=== PATIENT | female | born 1955 | race Caucasian/White ===

== ENCOUNTER → 2018-01-04 | Outpatient (CLI) | payer OTHER, MEDICARE | LOC: M WHC 09:32 | DX: Z12.31 Encounter for screening mammogram for malignant neoplasm of breast (principal); Z13.820 Encounter for screening for osteoporosis; Z78.0 Asymptomatic menopausal state | CPT/HCPCS: 77067 ==

== ENCOUNTER → 2019-01-07 | Outpatient (CLI) | payer OTHER, MEDICARE ==
--- NOTE | 2019-01-07 10:32 | REPMRS ---
Patient History The patient states she had a clinical breast exam in 12/2018. Family history of colorectal cancer at age 54 in father. Benign lumpectomy of the left breast, 1991. Benign excisional biopsy of the left breast, 1986. Digital Woman Screen Mammo: January 07, 2019 - Exam #: [id number] Bilateral CC and MLO view(s) were taken. Technologist: Rea Matthews, Technologist Prior study comparison: January 04, 2018, bilateral digital woman screen mammo performed at [facility]. April 29, 2014, digital woman screen mammo performed at [facility]. April 08, 2013, digital woman screen mammo performed at [facility]. FINDINGS: There are scattered fibroglandular densities. There has been no change in the appearance of the mammogram from the prior studies. There is a mild amount of scattered fibroglandular density which is fairly symmetric. There is no interval development of dominant mass, architectural distortion, or clustered microcalcification suggestive of malignancy. 3-D tomosynthesis shows no additional findings. Assessment: BI-RADS/ACR category 1 mammogram. Negative Mammogram. Recommendation Routine screening mammogram of both breasts in 1 year (for women over age 40). This patient's Lifetime Breast Cancer RIsk is estimated at 5.6 %. This mammogram was interpreted with the aid of an FDA-approved computer-aided dectection system. Electronically Signed By: José Miguel Bravo MD 01/07/19 1854
== END ==
LOC: M WHC 09:04
PROVIDERS: ATTEND Nurse Practitioner Women's Health
DX: Z12.31 Encounter for screening mammogram for malignant neoplasm of breast (principal); Z80.0 Family history of malignant neoplasm of digestive organs; N63.20 Unspecified lump in the left breast, unspecified quadrant

== ENCOUNTER → 2020-01-09 | Outpatient (CLI) | payer OTHER, MEDICARE ==
--- NOTE | 2020-01-09 10:06 | REPMRS ---
Patient History The patient states she had a clinical breast exam in December 2019. Family history of colorectal cancer at age 54 in father. Benign lumpectomy of the left breast, 1991. Benign excisional biopsy of the left breast, 1986. Digital Woman Screen Mammo: January 09, 2020 - Exam #: [id number] Bilateral CC and MLO view(s) were taken. Technologist: Demetria Martin, Technologist Prior study comparison: January 07, 2019, bilateral digital woman screen mammo performed at [facility]. January 04, 2018, bilateral digital woman screen mammo performed at [facility]. April 29, 2014, digital woman screen mammo performed at [facility]. FINDINGS: There are scattered fibroglandular densities. The Volpara volumetric breast density category is:B. There has been no change in the appearance of the mammogram from the prior studies. There is a mild amount of scattered fibroglandular density which is fairly symmetric. There is no interval development of dominant mass, architectural distortion, or grouped microcalcification suggestive of malignancy. 3-D tomosynthesis shows no additional findings. Assessment: BI-RADS/ACR category 1 mammogram. Negative Mammogram. Recommendation Routine screening mammogram of both breasts in 1 year (for women over age 40). This patient's Lifetime Breast Cancer Risk is estimated at 5.4 %. This mammogram was interpreted with the aid of an FDA-approved computer-aided dectection system. Electronically Signed By: José Miguel Bravo MD 01/09/20 [id number]
== END ==
LOC: M WHC 09:30
PROVIDERS: ATTEND Nurse Practitioner Women's Health
DX: Z12.31 Encounter for screening mammogram for malignant neoplasm of breast (principal)

== ENCOUNTER → 2021-01-13 | Outpatient (CLI) | payer OTHER, MEDICARE ==
--- NOTE | 2021-01-13 10:44 | REPMRS ---
Patient History Family history of colorectal cancer at age 54 in father. Benign lumpectomy of the left breast, 1991. Benign excisional biopsy of the left breast, 1986. Patient states no breast complaints today. Patient has signed MRS History Sheet. Digital Woman Screen Mammo: January 13, 2021 - Exam #: [id number] Bilateral CC and MLO view(s) were taken. Technologist: RT Jennifer Prior study comparison: January 09, 2020, bilateral digital woman screen mammo performed at [facility]. January 07, 2019, bilateral digital woman screen mammo performed at [facility]. January 04, 2018, bilateral digital woman screen mammo performed at [facility]. FINDINGS: There are scattered fibroglandular densities. The Volpara volumetric breast density category is:B. There has been no change in the appearance of the mammogram from the prior studies. There is a mild amount of scattered fibroglandular density which is fairly symmetric. There is no interval development of dominant mass, architectural distortion, or grouped microcalcification suggestive of malignancy. 3-D tomosynthesis shows no additional findings. Assessment: BI-RADS/ACR category 1 mammogram. Negative Mammogram. Recommendation Routine screening mammogram of both breasts in 1 year (for women over age 40). This patient's [facility] Lifetime Breast Cancer Risk is estimated at 5.1 %. This mammogram was interpreted with the aid of an FDA-approved computer-aided dectection system. Electronically Signed By: José Miguel Bravo MD 01/13/21 6025
== END ==
LOC: M WHC 08:07
PROVIDERS: ATTEND Nurse Practitioner Women's Health
DX: Z12.31 Encounter for screening mammogram for malignant neoplasm of breast (principal); Z80.0 Family history of malignant neoplasm of digestive organs

== ENCOUNTER → 2024-02-11 | Outpatient (CLI) | payer OTHER, MEDICARE | LOC: M WHC 10:22 | PROVIDERS: ATTEND Nurse Practitioner Family | DX: Z12.31 Encounter for screening mammogram for malignant neoplasm of breast (principal); R92.313 Mammographic fatty tissue density, bilateral breasts ==

== ENCOUNTER → 2025-02-11 | Outpatient (CLI) | payer OTHER, MEDICARE | LOC: M WHC 16:12 | PROVIDERS: ATTEND Nurse Practitioner Family | DX: Z12.31 Encounter for screening mammogram for malignant neoplasm of breast (principal); R92.323 Mammographic fibroglandular density, bilateral breasts ==